=== PATIENT | male | born 1990 | race African-American/Black ===

== ENCOUNTER 2018-12-31 21:42 | Emergency (ER) | payer OTHER ==
[~2018-12-31] VITALS: Ht 193 cm; Wt 142.9 kg
[~2018-12-31 21:42] MED LIST: DENIES ANY MEDS; LORTAB 5 MG/5001 TA1 PO; NORCO 5-325 TA1 EACH PO; TYLENOL EX-STR500 M2 PO
[2018-12-31 21:51] VITALS: BP 171/109
== END 2018-12-31 22:24 | disposition home or self-care (01) ==
LOC: ER 21:42
DX: L03.012 Cellulitis of left finger (principal); Z87.891 Personal history of nicotine dependence; Z88.1 Allergy status to other antibiotic agents

== ENCOUNTER 2019-02-18 14:42 | Emergency (ER) | payer OTHER ==
[~2019-02-18] VITALS: Ht 190.5 cm; Wt 158.8 kg
[2019-02-18] MEDS ORDERED: IBUPROFEN 800800 M1 PO (15:22)
[2019-02-18] MEDS ORDERED: AMOXICILLIN 50500 MG PO (15:22)
[2019-02-18 16:00] VITALS: BP 149/77
== END 2019-02-18 16:00 | disposition home or self-care (01) ==
LOC: ER 14:42
DX: J02.0 Streptococcal pharyngitis (principal); Z87.891 Personal history of nicotine dependence; Z88.1 Allergy status to other antibiotic agents

== ENCOUNTER 2019-04-14 00:03 | Emergency (ER) | payer OTHER ==
[~2019-04-14] VITALS: Ht 188 cm; Wt 167.8 kg
[~2019-04-14 00:03] MED LIST changes: +AMOXICILLIN 50500 MG PO; +IBUPROFEN 800800 M1 PO
[2019-04-14 01:40] LABS: ABSOLUTE NEUTROPHILS 5.4 thou/uL (1.4-8.2); BASOPHILS 0.5 % (0.0-2.0); EOSINOPHILS 1.5 % (0.0-3.0); HEMATOCRIT 40.5 % (42.0-52.0); HEMOGLOBIN 14.1 gm/dL (14.0-18.0); LYMPHOCYTES 31.1 % (24.0-44.0); MCH 29.8 pg (26.0-34.0); MCHC 34.9 g/dL (28.0-37.0); MCV 85.4 fL (80.0-100.0); PLATELET COUNT 251 thou/uL (150-400); POLYS 58.9 % (36.0-66.0); RBC 4.74 mil/uL (4.50-6.00); WBC 9.2 thou/uL (4.0-11.0)
[2019-04-14 01:50] LABS: ANION GAP 8 mmol/L (7-16); BUN 16 mg/dL (7-18); CALCIUM 8.6 mg/dL (8.5-10.1); CHLORIDE 105 mmol/L (98-107); CO2 27 mmol/L (21-32); GLUCOSE 118 mg/dL (74-106); POTASSIUM 3.2 mmol/L (3.5-5.1); SODIUM 140 mmol/L (136-145)
[2019-04-14 01:56] LABS: ALBUMIN 3.6 g/dL (3.4-5.0); DIRECT BILIRUBIN < 0.1 mg/dL (<0.1-0.3); LIPASE 144 U/L (73-393); SGOT 28 U/L (15-37); SGPT 37 U/L (30-65); TOTAL BILIRUBIN 0.3 mg/dL (<0.1-1.0); TOTAL PROTEIN 7.4 g/dL (6.4-8.2)
[2019-04-14] MEDS ORDERED: ZPAK PO (04:47)
[2019-04-14] MEDS ORDERED: NORCO 5-325 TA1 EACH PO (04:47)
[2019-04-14 05:11] VITALS: BP 91/51
== END 2019-04-14 05:07 | disposition home or self-care (01) ==
LOC: ER 00:03
PROVIDERS: Emergency Medicine
DX: R07.89 Other chest pain (principal); Z87.891 Personal history of nicotine dependence; Z88.1 Allergy status to other antibiotic agents

== ENCOUNTER 2019-12-14 11:30 | Emergency (ER) | payer OTHER ==
[~2019-12-14] VITALS: Ht 193 cm; Wt 158.8 kg
[~2019-12-14 11:30] MED LIST changes: +ZPAK PO
[2019-12-14 12:39] LABS: URINE BILIRUBIN NEGATIVE (Negative); URINE BLOOD 3+ (Negative); URINE CLARITY CLOUDY; URINE COLOR YELLOW; URINE GLUCOSE-RANDOM* NEGATIVE (Negative); URINE KETONES NEGATIVE (Negative); URINE LEUKOCYTES-REFLEX TRACE (Negative); URINE NITRITE-REFLEX NEGATIVE (Negative); URINE PROTEIN (DIPSTICK) TRACE (Negative)
[2019-12-14 12:48] LABS: BACTERIA-REFLEX 1-9 Few /HPF (None Seen); CASTS None Seen /LPF (None Seen); CRYSTALS None Seen /LPF (None Seen); SQUAMOUS 0-3 Few /LPF (0-3); URINE RBC >20 Many /HPF (0-2); URINE WBC-REFLEX 6-15 Few /HPF (0-5)
[2019-12-14] MEDS ORDERED: FLAGYL500 M1 PO (13:20)
[2019-12-14] MEDS ORDERED: MACROBID 100 M100 M1 PO (13:20)
[2019-12-14 13:41] VITALS: BP 168/111
== END 2019-12-14 13:42 | disposition home or self-care (01) ==
LOC: ER 11:30
PROVIDERS: Physician Assistant
DX: N39.0 Urinary tract infection, site not specified (principal); Z88.1 Allergy status to other antibiotic agents; Z87.891 Personal history of nicotine dependence

== ENCOUNTER 2020-04-15 17:04 | Emergency (ER) | payer OTHER ==
[~2020-04-15] VITALS: Ht 188 cm; Wt 158.8 kg
[~2020-04-15 17:04] MED LIST changes: +FLAGYL500 M1 PO; +MACROBID 100 M100 M1 PO
[2020-04-15] MEDS ORDERED: NORCO 5-325 TA1 EAC1 PO (18:33)
[2020-04-15 19:12] VITALS: BP 139/94
== END 2020-04-15 19:13 | disposition home or self-care (01) ==
LOC: ER 17:04
DX: M25.462 Effusion, left knee (principal); Z79.899 Other long term (current) drug therapy; Z79.2 Long term (current) use of antibiotics; Z88.1 Allergy status to other antibiotic agents; Z87.891 Personal history of nicotine dependence; W10.9XXA Fall (on) (from) unspecified stairs and steps, initial encounter; Y93.01 Activity, walking, marching and hiking; Y92.89 Other specified places as the place of occurrence of the external cause; Y99.8 Other external cause status

== ENCOUNTER 2020-09-12 16:03 | Emergency (ER) | payer OTHER ==
[~2020-09-12] VITALS: Ht 193 cm; Wt 172.4 kg
[~2020-09-12 16:03] MED LIST changes: +NORCO 5-325 TA1 EAC1 PO
[2020-09-12 16:20] LABS: URINE BILIRUBIN NEGATIVE (Negative); URINE BLOOD 3+ (Negative); URINE CLARITY CLOUDY; URINE COLOR YELLOW; URINE GLUCOSE-RANDOM* NEGATIVE (Negative); URINE KETONES NEGATIVE (Negative); URINE NITRITE-REFLEX NEGATIVE (Negative); URINE PROTEIN (DIPSTICK) TRACE (Negative); URINE SPECIFIC GRAVITY 1.025 (1.005-1.035); URINE UROBILINOGEN 0.2 E.U./dl (0.2-1.0)
[2020-09-12 16:28] LABS: URINE LEUKOCYTES-REFLEX 2+ (Negative)
[2020-09-12 16:35] LABS: CASTS None Seen /LPF (None Seen); CRYSTALS None Seen /LPF (None Seen); SQUAMOUS 4-10 Moderate /LPF (0-3); URINE WBC-REFLEX >25 Many /HPF (0-5)
[2020-09-12] MEDS ORDERED: BACTRIM DS TAB1 EAC1 PO (17:38)
[2020-09-12 20:17] VITALS: BP 150/74
== END 2020-09-12 20:18 | disposition home or self-care (01) ==
LOC: ER 16:03
PROVIDERS: Emergency Medicine
DX: N30.01 Acute cystitis with hematuria (principal); Z79.899 Other long term (current) drug therapy; Z87.891 Personal history of nicotine dependence; Z88.8 Allergy status to other drugs, medicaments and biological substances

== ENCOUNTER 2020-11-01 11:03 | Emergency (ER) | payer OTHER ==
[~2020-11-01] VITALS: Ht 190.5 cm; Wt 172.4 kg
[~2020-11-01 11:03] MED LIST changes: +BACTRIM DS TAB1 EAC1 PO
[2020-11-01 11:50] LABS: ABSOLUTE NEUTROPHILS 5.7 thou/uL (1.4-8.2); BASOPHILS 0.3 % (0.0-2.0); EOSINOPHILS 0.2 % (0.0-3.0); HEMATOCRIT 43.6 % (42.0-52.0); HEMOGLOBIN 14.8 gm/dL (14.0-18.0); LYMPHOCYTES 20.8 % (24.0-44.0); MCH 29.5 pg (26.0-34.0); MCV 86.8 fL (80.0-100.0); MONOCYTES 5.5 % (1.0-8.0); PLATELET COUNT 265 thou/uL (150-400); POLYS 73.2 % (36.0-66.0); RBC 5.03 mil/uL (4.50-6.00); RDW 14.7 % (10.5-14.5); WBC 7.8 thou/uL (4.0-11.0)
[2020-11-01 11:58] LABS: ANION GAP 12 mmol/L (7-16); BUN 10 mg/dL (7-18); CALCIUM 9.3 mg/dL (8.5-10.1); CHLORIDE 100 mmol/L (98-107); CO2 28 mmol/L (21-32); CREATININE 0.9 mg/dL (0.7-1.3); GLUCOSE 108 mg/dL (74-106); POTASSIUM 3.1 mmol/L (3.5-5.1); SODIUM 140 mmol/L (136-145)
[2020-11-01 12:06] LABS: ALBUMIN 4.1 g/dL (3.4-5.0); MAGNESIUM 2.1 mg/dL (1.8-2.4); SGOT 28 U/L (15-37); SGPT 42 U/L (30-65); TOTAL BILIRUBIN 0.5 mg/dL (0.2-1.0); TOTAL PROTEIN 8.3 g/dL (6.4-8.2); TROPONIN-I <0.06 ng/mL (<0.06)
[2020-11-01] MEDS ORDERED: POTASSIUM20 PO (12:14)
[2020-11-01 12:50] VITALS: BP 123/81
--- NOTE | 2020-11-02 07:08 | EKG ---
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1990 Requested By: Nayla Hardin Order Number: [id number] MD: Reed Davenport Measurements Intervals [place] Rate: 70 P: 35 DC: 147 QRS: 39 QRSD: 103 T: -34 QT: 392 QTc: 423 Interpretive Statements Sinus rhythm RSR' in V1 or V2, right VCD or RVH Nonspecific T abnormalities, inferior leads No previous ECG available for comparison Electronically Signed On 11-02-2020 7:08:37 [employer] by Reed Davenport [email or web address] <ELECTRONICALLY SIGNED> By: Reed Davenport MD, FACC 11/02/20 0708 [id number] Reed Davenport MD, FAC /EPI
== END 2020-11-01 12:52 | disposition home or self-care (01) ==
LOC: ER 11:03
PROVIDERS: Physician Assistant
DX: R55 Syncope and collapse (principal); R03.0 Elevated blood-pressure reading, without diagnosis of hypertension; Z88.1 Allergy status to other antibiotic agents; Z87.891 Personal history of nicotine dependence

== ENCOUNTER 2020-11-13 01:26 | Emergency (ER) | payer OTHER ==
[~2020-11-13] VITALS: Ht 190.5 cm; Wt 172.4 kg
[~2020-11-13 01:26] MED LIST changes: +POTASSIUM20 PO
[2020-11-13 01:31] VITALS: BP 186/125
[2020-11-13 01:44] LABS: URINE BILIRUBIN NEGATIVE (Negative); URINE BLOOD 3+ (Negative); URINE CLARITY CLEAR; URINE COLOR YELLOW; URINE GLUCOSE-RANDOM* NEGATIVE (Negative); URINE KETONES NEGATIVE (Negative); URINE NITRITE-REFLEX NEGATIVE (Negative); URINE PROTEIN (DIPSTICK) NEGATIVE (Negative); URINE SPECIFIC GRAVITY 1.025 (1.005-1.035); URINE UROBILINOGEN 0.2 E.U./dl (0.2-1.0)
[2020-11-13 01:53] LABS: URINE LEUKOCYTES-REFLEX 2+ (Negative)
[2020-11-13 02:10] LABS: CASTS None Seen /LPF (None Seen); MUCUS None Seen strn/LPF (None Seen); SQUAMOUS 0-3 Few /LPF (0-3)
[2020-11-13 02:11] LABS: BACTERIA-REFLEX None Seen /HPF (None Seen); CRYSTALS None Seen /LPF (None Seen); TRANSITIONAL EPITHEL CELL 0-3 Few /LPF (None Seen); URINE RBC 3-10 Few /HPF (0-2)
[2020-11-13] MEDS ORDERED: BACTRIM DS TAB1 EACH PO (02:14)
== END 2020-11-13 02:50 | disposition home or self-care (01) ==
LOC: ER 01:26
PROVIDERS: Emergency Medicine
DX: N39.0 Urinary tract infection, site not specified (principal); R31.9 Hematuria, unspecified; Z88.1 Allergy status to other antibiotic agents; Z87.891 Personal history of nicotine dependence

== ENCOUNTER 2020-12-22 16:21 | Emergency (ER) | payer OTHER ==
[~2020-12-22] VITALS: Ht 190.5 cm; Wt 167.8 kg
[~2020-12-22 16:21] MED LIST changes: +BACTRIM DS TAB1 EACH PO
[2020-12-22 17:11] LABS: URINE BILIRUBIN NEGATIVE (Negative); URINE BLOOD 3+ (Negative); URINE COLOR YELLOW; URINE GLUCOSE-RANDOM* NEGATIVE (Negative); URINE KETONES TRACE (Negative); URINE NITRITE-REFLEX NEGATIVE (Negative); URINE PROTEIN (DIPSTICK) TRACE (Negative); URINE UROBILINOGEN 0.2 E.U./dl (0.2-1.0)
[2020-12-22 17:13] LABS: URINE LEUKOCYTES-REFLEX 1+ (Negative)
[2020-12-22 17:14] LABS: URINE CLARITY SL HAZY
[2020-12-22 17:20] LABS: SQUAMOUS None Seen /LPF (0-3); URINE WBC-REFLEX 6-15 Few /HPF (0-5)
[2020-12-22 17:22] LABS: BACTERIA-REFLEX 1-9 Few /HPF (None Seen)
[2020-12-22 17:28] LABS: ABSOLUTE NEUTROPHILS 5.1 thou/uL (1.4-8.2); BASOPHILS 0.5 % (0.0-2.0); EOSINOPHILS 0.7 % (0.0-3.0); HEMATOCRIT 43.1 % (42.0-52.0); HEMOGLOBIN 14.4 gm/dL (14.0-18.0); LYMPHOCYTES 28.2 % (24.0-44.0); MCHC 33.5 g/dL (28.0-37.0); MCV 86.5 fL (80.0-100.0); MONOCYTES 7.4 % (1.0-8.0); PLATELET COUNT 295 thou/uL (150-400); POLYS 63.2 % (36.0-66.0); RBC 4.98 mil/uL (4.50-6.00); RDW 15.2 % (10.5-14.5); WBC 8.1 thou/uL (4.0-11.0)
[2020-12-22 17:28] LABS: CASTS None Seen /LPF (None Seen); CRYSTALS None Seen /LPF (None Seen)
[2020-12-22 17:45] LABS: CREATININE 0.8 mg/dL (0.7-1.3); POTASSIUM 3.3 mmol/L (3.5-5.1)
[2020-12-22] MEDS ORDERED: FLAGYL500 M1 PO (18:31)
[2020-12-22] MEDS ORDERED: DOXYCYCLINE 10100 MG PO (18:33)
[2020-12-22 19:01] VITALS: BP 168/80
== END 2020-12-22 19:04 | disposition home or self-care (01) ==
LOC: ER 16:21
PROVIDERS: Nurse Practitioner
DX: A59.9 Trichomoniasis, unspecified (principal); R31.9 Hematuria, unspecified; Z88.1 Allergy status to other antibiotic agents; Z87.891 Personal history of nicotine dependence